=== PATIENT | male | born 1950 | race Caucasian/White ===

== ENCOUNTER 2020-11-18 06:00 | Day surgery (SDC) | payer MEDICARE, BC ==
[~2020-11-18] VITALS: Ht 193 cm; Wt 124.7 kg
--- NOTE | ~2020-11-18 | OP ---
PATIENT NAME: TAYLOR SERRATO MEDICAL RECORD: [id number] :50 LOCATION:D.OPS ADMISSION DATE: SURGEON: THIERRY VIZCARRA DPM DATE OF OPERATION: 11/18/2020 PREOPERATIVE DIAGNOSES: 1. Spur, dorsal right first metatarsocuneiform joint. 2. Nerve entrapment medial dorsal cutaneous nerve, right foot. POSTOPERATIVE DIAGNOSES: 1. Spur, dorsal right first metatarsocuneiform joint. 2. Nerve entrapment medial dorsal cutaneous nerve, right foot. PROCEDURES: 1. Right dorsal first metatarsocuneiform joint spur removal. 2. Right medial dorsal cutaneous nerve resection. ANESTHESIA: General with local infiltrate utilizing approximately 11 cc of 1:1 mix of lidocaine and Marcaine from the dorsal aspect of the right foot. HEMOSTASIS: Right ankle Esmarch. PATHOLOGY: Two specimens sent for gross and micro identification. PREOPERATIVE DETAILS: The patient was taken to the OR and placed on the operating table in a supine position followed by induction of general anesthesia and infiltration of local anesthetic. The right extremity was then prepped and draped in the usual aseptic technique followed by exsanguination with an Esmarch. The Esmarch was secured around the ankle. PROCEDURE: Spur excision dorsal aspect of the right first metatarsocuneiform joint. OPERATIVE DETAILS: A 15 blade was used to create a 3 cm linear incision over the dorsal aspect of the right first metatarsocuneiform joint. The incision was deepened down through subcutaneous tissue to the periosteum. A linear periosteal incision was made. The spur was exposed. Osteotome and mallet was used to excise the spur. There was noted to be some gouty tophi within the joint. It was sent to pathology for gross and micro identification. A bone rasp was used to smooth the dorsal aspect of the joint. The wound was flushed. At this time, dissection just dorsal to the spur located the medial dorsal cutaneous nerve. There was noted to be enlargement of the veins around the nerve itself indicating trauma. There was approximately 1.5 cm section of the nerve that was freed and then cut and excised and sent to pathology. The wound was flushed. The periosteum was closed with 2-0 Vicryl, the subcutaneous tissue with 4-0 Rapide and the skin was closed with 4-0 Rapide in a subcuticular technique followed by Dermabond, Adaptic, 4 x 4 and Conform was used to dress the wound followed by Coban. Esmarch was removed. The patient tolerated the procedure well and left the OR with vital signs stable and vascular status at preoperative levels. The patient was transported to recovery per anesthesia in stable condition. TRANSINT:[id number] Voice Confirmation ID: [id number] DOCUMENT ID: [id number] OPERATIVE REPORT [id number] TAYLOR SERRATO MCKAY DPM CC: [id number] DICTATION DATE: 11/18/20916 DRIVER WHEELCHAIR: 11/18/20 [address] [facility] 11/18/20 [facility] [address] [place] [address]
[~2020-11-18 06:00] MED LIST: COZAAR25 MG PO; LYRICA25 MG PO; VOLTAREN75 MG PO
[2020-11-18 06:17] LABS: HEMATOCRIT 47.5 % (42.0-54.0); HEMOGLOBIN 16.4 g/dL (13.5-17.5); MCH 33.5 pg (26.0-34.0); MCHC 34.5 g/dL (31.0-37.0); MCV 96.9 fL (80.0-100.0); MEAN PLATELET VOLUME 10.4 fL (7.4-10.4); RBC 4.9 10x6/uL (4.20-6.10); RDW 13.7 % (11.5-14.5); WBC 7.2 10x3/uL (4.8-10.8)
[2020-11-18 06:23] LABS: ANION GAP 13.5 mmol/L (8-16); CALCIUM 9.4 mg/dL (8.5-10.1); CARBON DIOXIDE 26.3 mmol/L (21.0-32.0); CREATININE - SERUM 1.1 mg/dL (0.6-1.3); POTASSIUM - SERUM 3.8 mmol/L (3.5-5.1)
[2020-11-18 07:14] VITALS: BP 108/45; Ht 193 cm; Wt 124.7 kg
== END 2020-11-18 10:55 | disposition home or self-care (01) ==
LOC: D.OPS 06:00
PROVIDERS: Anesthesiology; ATTEND Podiatrist
DX: M89.8X7 Other specified disorders of bone, ankle and foot (principal); M77.31 Calcaneal spur, right foot; I10 Essential (primary) hypertension